=== PATIENT | female | born 1985 | race Caucasian/White ===

== ENCOUNTER 2021-04-21 12:08 | Emergency (ER) | payer BC, SELFPAY ==
[2021-04-21 13:20] VITALS: BP 123/76; PULSE 68; RESP 19; TEMP 36.9; O2SAT 98; BMI 19.3
[2021-04-21 13:48] LABS: UTC Influenza A Antigen Negative (Negative); UTC Influenza B Antigen Negative (Negative); UTC Strep Screen (Rapid) Negative (Negative)
--- NOTE | 2021-04-21 14:18 | HMH.EDUTC ---
[facility] [place] Clinical Impression: Viral syndrome Disposition: Home, Self-Care Condition on Discharge: Good Instructions: DI for Viral Syndrome, DI for COVID-19 (Suspected or Confirmed ) Additional Instructions: *Monitor Temp, Over the counter Motrin or Tylenol as directed/as needed Tylenol every 4 hours and Motrin every 6 hours (as long as your family doctor has told you that you can take it) for fever or pain. and straight to ER if unable to lower temp less than 101.0 after medication given *Warm salt water gargles may help to soothe the throat *Throat Lozenges *Warm fluids like tea with honey may help to soothe the throat *Sleep elevated *Humidifier/Vaporizer Follow up IMMEDIATELY for new or worsening symptoms or no Noticeable improvement over the next 48-72 hours. 911 for difficulty breathing or swallowing You were tested for today for COVID19 your test result should be back in the next 24-48 hours, you may check your results on the [facility] if you have trouble logging on you can call support or you will get a call if your results are Positive You was given a handout with instructions for Self Quarantine and Self isolation for while you wait on test results and what to do if they are positive If you are positive the Health Dept will be contacting you also Make sure to take your Vitamins Vit. C Vit D and Zinc if you can take them Prescriptions: Ondansetron [Zofran 4mg ODT] 4 mg PO TIDP PRN #10 tab PRN Reason: Nausea Transmission Status: Pending to [facility] Referrals: Kirk Parham MD [Primary Care Provider] - As needed Forms: Work/School Release Time of Disposition: 14:20 Medical Decision Making - Doe Inquiry Pt receiving controlled substance: No Doe was queried for this patient: No Vital Signs: 04/21/21 13:20 Temperature 98.4 F Temperature Source Oral Pulse Rate [Right Brachial] 68 Respiratory Rate 19 Blood Pressure [Right Arm] 123/76 Blood Pressure Mean [Right Arm] 91 Blood Pressure Source [Right Arm] Automatic Cuff Blood Pressure Position [Right Arm] Sitting 02 Sat by Pulse Oximetry 98 Oxygen Delivery Method Room Air - Lab Data Lab results reviewed: Yes: I reviewed the patient's lab results. Lab Results 04/21/21 13:19: Influenza Type A Ag Negative, Influenza Type B Ag Negative 04/21/21 13:19: Strep Scn Rapid Clinic Negative Orders (Tests/Meds): ORDERS Category Date Time Status Covid-19 Nasal PCR ([facility]) Routine Lab 04/21/21 13:10 Received Strep Screen Confirmation Stat Micro 04/21/21 13:19 Received Medical Decision Narrative: Patient state that she has taken zofran in the past without complications [facility] [place] - General Stated complaint: sore throat, cough, diarrhea, h/a, congestion Time Seen by Provider: 04/21/21 14:18 Mode of Arrival: Ambulatory Source of Information: Patient Limitations: No Limitations Description of Symptoms (Recalled from Triage Doc. by RN): PATIENT C/O BODY ACHES AND SORE THROAT SINCE YESTERDAY. SHE STATES SHE FEELS LIKE SHE HAS THE FLU HEENT Symptoms (Recalled from RN notes): Yes Resp Symptoms (Recalled from RN notes): No Skin Symptoms (Recalled from RN notes): No MS Symptoms (Recalled from RN notes): No Functional Status (Recalled from RN notes): WNL - History of Present Illness Provider Complaint: Patient state that she feels like she has the flu States that her neice recently tested positive for COVID and she was around her also her sister is having similar symptoms - Related Data Home Medications Medication Instructions Recorded Confirmed buprenorphine 8 mg-naloxone 2 mg 1.75 tab SUBLINGUAL DAILY tab 03/14/21 04/21/21 sublingual tablet Gabapentin 300 mg PO TID 04/21/21 04/21/21 Previous Rx's Medication Instructions Recorded Ondansetron [Zofran 4mg ODT] 4 mg PO TIDP PRN #10 tab 04/21/21 Allergies Allergy/AdvReac Type Severity Reaction Status Date / Time pentazocine [From T
[2021-04-21 14:22] VITALS: BP 123/76; PULSE 68; RESP 19; TEMP 36.9; O2SAT 98
== END 2021-04-21 14:32 | disposition home or self-care (01) ==
PROVIDERS: Emergency Provider Nurse Practitioner; PCP Emergency Medicine
DX: J02.9 Acute pharyngitis, unspecified (principal); B34.9 Viral infection, unspecified; M79.7 Fibromyalgia; Z88.0 Allergy status to penicillin; F17.210 Nicotine dependence, cigarettes, uncomplicated
CPT/HCPCS: 87804; 87880; 99203; C9803; G0463; U0003; U0005

== ENCOUNTER → 2021-05-13 16:02 | Outpatient (CLI) | payer BC, SELFPAY ==
[2021-05-13 17:10] LABS: Amphetamine/Metha Screen,Urine Negative ng/ml (<1000)
[2021-05-13 17:11] LABS: Barbiturates Screen,Urine Negative ng/ml (<200)
[2021-05-13 17:13] LABS: Benzodiazepines Screen,Urine Negative ng/ml (<200); Cannabinoid Screen,Urine Negative ng/ml (<50)
[2021-05-13 17:14] LABS: Cocaine Screen,Urine Negative ng/ml (<300)
[2021-05-13 17:15] LABS: Methadone Screen,Urine Negative ng/ml (<300); Opiate Screen,Urine Negative ng/ml (<300)
[2021-05-13 17:16] LABS: Phencyclidine Screen,Urine Negative ng/ml (<25)
== END ==
PROVIDERS: PCP Emergency Medicine; Visit Provider Emergency Medicine
DX: Z79.899 Other long term (current) drug therapy (principal)
CPT/HCPCS: 80305

== ENCOUNTER → 2021-10-25 12:21 | Outpatient (CLI) | payer BC, SELFPAY ==
[2021-10-25 13:31] LABS: Basophils # 0.1 K/mm3 (0-0.2); Basophils % 0.4 % (0.1-2.0); Eosinophils # 0.2 K/mm3 (0.0-0.4); Eosinophils % 1.6 % (0.1-12.0); Hematocrit 34.7 % (37.0-47.0); Hemoglobin 10.6 g/dL (12.2-16.2); Lymphocytes % 27.6 % (10-50); Mean Corpuscular HGB Conc 30.5 g/dL (31.8-35.4); Mean Corpuscular Hemoglobin 22.2 pg (27.0-31.2); Mean Corpuscular Volume 72.7 fl (81-99); Mean Platelet Volume 8.1 fl (7.4-10.4); Monocytes # 0.5 K/mm3 (0.1-1.0); Monocytes % 4.6 % (1.7-9.3); Neutrophils # 7.1 K/mm3 (1.8-7.8); Neutrophils % 65.8 % (37.0-80.0); Platelet Count 321 K/mm3 (142-424); Red Blood Count 4.77 M/mm3 (4.20-5.40); Red Cell Distribution Width 17.4 % (11.5-17.5); White Blood Count 10.8 K/mm3 (4.8-10.8)
[2021-10-25 13:53] LABS: Chloride 102 mmol/L (98-107)
[2021-10-25 13:54] LABS: Potassium 3.7 mmoL/L (3.5-5.1); Sodium 137 mmol/L (136-145)
[2021-10-25 13:56] LABS: Alanine Aminotransferase 63 U/L (12-78); Anion Gap 11.7 mEq/L (5-15); Aspartate Amino Transferase 74 U/L (14-36); Blood Urea Nitrogen 10 mg/dl (7-17); Carbon Dioxide 27 mmol/L (22.0-30.0); Estimated Glomerular Filt Rate 112 ml/min (>60); GFR (African American) 135 ML/MIN (>60)
[2021-10-25 13:57] LABS: Albumin Level 4.3 g/dl (3.5-5.0); Alkaline Phosphatase 94 U/L (38-126); Bilirubin,Direct 0.3 mg/dl (0.0-0.4); Bilirubin,Total 0.3 mg/dl (0.2-1.3); Calcium 9.2 mg/dl (8.4-10.2); Glucose 139 mg/dl (74-100); Total Protein,Serum 7.7 g/dl (6.3-8.2)
[2021-10-26 09:13] LABS: HIV Screen 4th Generation wRfx Non Reactive (Non Reactive)
[2021-10-28 23:14] LABS: Hep A Ab, IgM NEGATIVE; Hepatitis B Core Antibody IgM NEGATIVE; Hepatitis B Surface Antigen NEGATIVE; Hepatitis C Antibody <0.1
== END ==
PROVIDERS: PCP Emergency Medicine; Visit Provider Psychiatry & Neurology Psychiatry
DX: F11.20 Opioid dependence, uncomplicated (principal)
CPT/HCPCS: 36415; 80048; 80074; 80076; 85025; 86703; G0432

== ENCOUNTER → 2021-12-21 17:17 | Outpatient (CLI) | payer BC, SELFPAY ==
[2021-12-21 15:38] LABS: Basophils # 0.1 K/mm3 (0-0.2); Basophils % 0.5 % (0.1-2.0); Eosinophils # 0.2 K/mm3 (0.0-0.4); Eosinophils % 2.2 % (0.1-12.0); Hematocrit 35.9 % (37.0-47.0); Lymphocytes # 3.1 K/mm3 (0.7-4.5); Lymphocytes % 31.4 % (10-50); Mean Corpuscular HGB Conc 30.7 g/dL (31.8-35.4); Mean Corpuscular Hemoglobin 22.7 pg (27.0-31.2); Mean Corpuscular Volume 73.9 fl (81-99); Mean Platelet Volume 9.1 fl (7.4-10.4); Monocytes # 0.6 K/mm3 (0.1-1.0); Monocytes % 6.3 % (1.7-9.3); Neutrophils # 5.9 K/mm3 (1.8-7.8); Neutrophils % 59.6 % (37.0-80.0); Platelet Count 379 K/mm3 (142-424); Red Blood Count 4.85 M/mm3 (4.20-5.40); Red Cell Distribution Width 17.9 % (11.5-17.5); White Blood Count 9.9 K/mm3 (4.8-10.8)
[2021-12-21 15:58] LABS: Alanine Aminotransferase 33 U/L (12-78); Albumin/Globulin Ratio 1.1 (1.1-1.8); Alkaline Phosphatase 124 U/L (38-126); Anion Gap 11.2 mEq/L (5-15); Aspartate Amino Transferase 41 U/L (14-36); Blood Urea Nitrogen 6 mg/dl (7-17); Carbon Dioxide 27 mmol/L (22.0-30.0); Chloride 103 mmol/L (98-107); Chol/HDL Ratio 6.3 (1-3.5); Cholesterol 241 mg/dl (140-200); Estimated Glomerular Filt Rate 138 ml/min (>60); GFR (African American) 167 ML/MIN (>60); Globulin 3.5 g/dL (1.3-3.2); Glucose 90 mg/dl (74-100); HDL Cholesterol 38 mg/dl (40-60); Potassium 4.2 mmoL/L (3.5-5.1); Sodium 137 mmol/L (136-145); Total Protein,Serum 7.5 g/dl (6.3-8.2); Triglycerides 133 mg/dl (30-150); VLDL Cholesterol 27 mg/dL (0-40)
[2021-12-21 16:03] LABS: Bilirubin,Total < 0.1 mg/dl (0.2-1.3)
[2021-12-21 16:05] LABS: Total Iron Binding Capacity 460 ug/dL (265-497)
[2021-12-21 16:09] LABS: Direct LDL Cholesterol 188.74 mg/dL (100-129)
[2021-12-21 16:25] LABS: 25-OH Vitamin D, Total < 12.8 ng/mL (30-100)
[2021-12-21 16:28] LABS: Thyroid Stimulating Hormone 2.16 uIU/mL (0.465-4.68)
[2021-12-21 16:31] LABS: Ferritin 7.15 ng/ml (6.24-137)
[2021-12-21 16:33] LABS: Iron 24 ug/dL (37-170)
[2021-12-21 16:48] LABS: Vitamin B12 332 pg/mL (239-931)
== END ==
PROVIDERS: PCP Physician Assistant; Visit Provider Physician Assistant
DX: I10 Essential (primary) hypertension (principal); R53.83 Other fatigue; E55.9 Vitamin D deficiency, unspecified; D50.9 Iron deficiency anemia, unspecified
CPT/HCPCS: 80053; 80061; 82306; 82607; 82728; 83540; 83550; 84443; 85025

== ENCOUNTER → 2021-12-28 16:34 | Outpatient (CLI) | payer BC, SELFPAY ==
[2021-12-28 14:41] LABS: Anion Gap 18.4 mEq/L (5-15); Blood Urea Nitrogen 10 mg/dl (7-17); Calcium 8.8 mg/dl (8.4-10.2); Carbon Dioxide 23 mmol/L (22.0-30.0); Chloride 101 mmol/L (98-107); Estimated Glomerular Filt Rate 138 ml/min (>60); GFR (African American) 167 ML/MIN (>60); Glucose 104 mg/dl (74-100); Potassium 4.4 mmoL/L (3.5-5.1); Sodium 138 mmol/L (136-145)
== END ==
PROVIDERS: PCP Physician Assistant; Visit Provider Physician Assistant
DX: N18.9 Chronic kidney disease, unspecified (principal); I12.9 Hypertensive chronic kidney disease with stage 1 through stage 4 chronic kidney disease, or unspecified chronic kidney disease
CPT/HCPCS: 80048

== ENCOUNTER 2022-06-03 18:51 | Emergency (ER) | payer OTHER, BC, SELFPAY ==
[2022-06-03 18:54] VITALS: BP 131/75; PULSE 78; RESP 16; TEMP 36.7; O2SAT 98; BMI 36.3
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
[2022-06-03 20:10] VITALS: BP 130/72; PULSE 76; RESP 18; TEMP 36.6; O2SAT 99
== END 2022-06-03 20:12 | disposition home or self-care (01) ==
PROVIDERS: Emergency Provider Emergency Medicine; PCP Emergency Medicine
DX: S29.012A Strain of muscle and tendon of back wall of thorax, initial encounter (principal); R73.03 Prediabetes; D50.9 Iron deficiency anemia, unspecified; F17.210 Nicotine dependence, cigarettes, uncomplicated; V49.40XA Driver injured in collision with unspecified motor vehicles in traffic accident, initial encounter; Z98.51 Tubal ligation status
CPT/HCPCS: 99283; 99284

== ENCOUNTER 2022-06-20 11:40 | Emergency (ER) | payer OTHER, BC, SELFPAY ==
[2022-06-20 11:41] VITALS: BP 121/74; PULSE 69; RESP 17; TEMP 36.6; O2SAT 97; BMI 38.2
[2022-06-20 12:00] VITALS: BP 120/85; PULSE 69; O2SAT 96
--- NOTE | 2022-06-20 12:15 | PC.NURSE ---
RJ ADAMS at for pt leal
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
[2022-06-20 12:30] VITALS: BP 133/85; PULSE 60; O2SAT 95
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
[2022-06-20 13:00] VITALS: BP 106/70; PULSE 62; O2SAT 96
[2022-06-20 13:30] VITALS: BP 106/67; PULSE 57; O2SAT 96
--- NOTE | 2022-06-20 13:41 | PC.NURSE ---
Patient states she feels better and does not have a headache any longer. Attending notified
[2022-06-20 13:56] VITALS: BP 106/67; PULSE 76; RESP 17; TEMP 36.7; O2SAT 96
== END 2022-06-20 14:01 | disposition home or self-care (01) ==
PROVIDERS: Emergency Provider Emergency Medicine; PCP Emergency Medicine
DX: R51.9 Headache, unspecified (principal); M54.6 Pain in thoracic spine
CPT/HCPCS: 70450; 72125; 72128; 96361; 96374; 96375; 99284; 99285

== ENCOUNTER 2023-03-03 23:31 | Emergency (ER) | payer BC, SELFPAY ==
[2023-03-03 23:33] VITALS: BP 127/85; PULSE 82; RESP 18; TEMP 36.9; O2SAT 99; BMI 38.2
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
[2023-03-04 00:10] VITALS: BP 127/85; PULSE 82; RESP 18; TEMP 36.9; O2SAT 100
== END 2023-03-04 00:10 | disposition home or self-care (01) ==
PROVIDERS: Emergency Provider Emergency Medicine; PCP Emergency Medicine
DX: S61.212A Laceration without foreign body of right middle finger without damage to nail, initial encounter (principal); D50.9 Iron deficiency anemia, unspecified; F17.210 Nicotine dependence, cigarettes, uncomplicated; W26.8XXA Contact with other sharp object(s), not elsewhere classified, initial encounter; Z23 Encounter for immunization
CPT/HCPCS: 12001; 90715; 96372; 99283

== ENCOUNTER 2023-05-01 20:46 | Outpatient (CLI) | payer BC, SELFPAY ==
[2023-05-01 18:30] LABS: Basophils % 0.5 % (0.1-2.0); Eosinophils # 0.1 K/mm3 (0.0-0.4); Eosinophils % 1.8 % (0.1-12.0); Hematocrit 33.5 % (37.0-47.0); Hemoglobin 12.9 g/dL (12.2-16.2); Lymphocytes # 2.3 K/mm3 (0.7-4.5); Lymphocytes % 34.8 % (10-50); Mean Corpuscular HGB Conc 38.4 g/dL (31.8-35.4); Mean Corpuscular Hemoglobin 31.5 pg (27.0-31.2); Mean Corpuscular Volume 81.9 fl (81-99); Monocytes # 0.4 K/mm3 (0.1-1.0); Monocytes % 5.5 % (1.7-9.3); Neutrophils # 3.8 K/mm3 (1.8-7.8); Neutrophils % 57.4 % (37.0-80.0); Platelet Count 210 K/mm3 (142-424); Red Blood Count 4.08 M/mm3 (4.20-5.40); Red Cell Distribution Width 17.1 % (11.5-17.5); White Blood Count 6.7 K/mm3 (4.8-10.8)
[2023-05-01 18:34] LABS: Chol/HDL Ratio 5.7 (1-3.5); Cholesterol 199 mg/dl (140-200); HDL Cholesterol 35 mg/dl (40-60); Triglycerides 108 mg/dl (30-150); VLDL Cholesterol 22 mg/dL (0-40)
[2023-05-01 18:44] LABS: Direct LDL Cholesterol 138.24 mg/dL (100-129)
[2023-05-01 19:18] LABS: 25-OH Vitamin D, Total 19.8 ng/mL (30-100)
[2023-05-01 20:59] LABS: Hemoglobin A1C 5.7 % (4.0-6.0)
== END 2023-05-01 23:59 ==
LOC: LAB.DROPOF 20:47
PROVIDERS: PCP Internal Medicine; Visit Provider Internal Medicine
DX: D50.9 Iron deficiency anemia, unspecified (principal); E55.9 Vitamin D deficiency, unspecified; E78.5 Hyperlipidemia, unspecified; Z79.899 Other long term (current) drug therapy
CPT/HCPCS: 80061; 82306; 83036; 85025

== ENCOUNTER 2023-10-17 19:01 | Outpatient (CLI) | payer BC, SELFPAY ==
[2023-10-17 20:21] LABS: Microalbumin < 6.000 mg/L (0-16.7)
[2023-10-17 20:32] LABS: Alanine Aminotransferase 27 U/L (12-78); Albumin Level 3.7 g/dl (3.5-5.0); Albumin/Globulin Ratio 1.1 (1.1-1.8); Alkaline Phosphatase 122 U/L (38-126); Anion Gap 8.1 mEq/L (5-15); Aspartate Amino Transferase 30 U/L (14-36); Bilirubin,Total 0.2 mg/dl (0.2-1.3); Blood Urea Nitrogen 11 mg/dl (7-17); Calcium 9.3 mg/dl (8.4-10.2); Carbon Dioxide 28 mmol/L (22.0-30.0); Chloride 106 mmol/L (98-107); Chol/HDL Ratio 5.6 (1-3.5); Cholesterol 197 mg/dl (140-200); Estimated Glomerular Filt Rate 137 ml/min (>60); GFR (African American) 165 ML/MIN (>60); Globulin 3.3 g/dL (1.3-3.2); Glucose 103 mg/dl (74-100); HDL Cholesterol 35 mg/dl (40-60); Potassium 4.1 mmoL/L (3.5-5.1); Sodium 138 mmol/L (136-145); Triglycerides 91 mg/dl (30-150); VLDL Cholesterol 18 mg/dL (0-40)
[2023-10-17 20:43] LABS: Direct LDL Cholesterol 148.15 mg/dL (100-129)
[2023-10-17 21:01] LABS: Thyroid Stimulating Hormone 1.45 uIU/mL (0.465-4.68)
[2023-10-17 22:36] LABS: Hemoglobin A1C 5.6 % (4.0-6.0)
[2023-10-17 22:50] LABS: Vitamin B12 389 pg/mL (239-931)
== END 2023-10-17 23:59 | disposition home or self-care (01) ==
PROVIDERS: PCP Internal Medicine; Visit Provider Internal Medicine
DX: M79.2 Neuralgia and neuritis, unspecified (principal); Z79.899 Other long term (current) drug therapy; E66.9 Obesity, unspecified; Z68.38 Body mass index [BMI] 38.0-38.9, adult
CPT/HCPCS: 80053; 80061; 82043; 82607; 83036; 84443

== ENCOUNTER 2024-07-07 14:24 | Outpatient (CLI) | payer OTHER, SELFPAY ==
[2024-07-07 18:39] LABS: Creatinine,Urine Random 32 mg/dL (Not Estab.); Microalbumin < 6.000 mg/L (0-16.7)
[2024-07-07 19:09] LABS: Basophils % 0.4 % (0.1-2.0); Eosinophils # 0.2 K/mm3 (0.0-0.4); Eosinophils % 1.9 % (0.1-12.0); Hematocrit 34.9 % (37.0-47.0); Hemoglobin 10.6 g/dL (12.2-16.2); Lymphocytes # 2.4 K/mm3 (0.7-4.5); Lymphocytes % 31.4 % (10-50); Mean Corpuscular HGB Conc 30.4 g/dL (31.8-35.4); Mean Corpuscular Hemoglobin 23.3 pg (27.0-31.2); Mean Corpuscular Volume 76.9 fl (81-99); Mean Platelet Volume 10.5 fl (7.4-10.4); Monocytes # 0.5 K/mm3 (0.1-1.0); Monocytes % 6.2 % (1.7-9.3); Neutrophils # 4.6 K/mm3 (1.8-7.8); Neutrophils % 60.1 % (37.0-80.0); Platelet Count 348 K/mm3 (142-424); Red Blood Count 4.54 M/mm3 (4.20-5.40); Red Cell Distribution Width 17.2 % (11.5-17.5); White Blood Count 7.7 K/mm3 (4.8-10.8)
[2024-07-07 19:44] LABS: Hemoglobin A1C 5.8 % (4.0-6.0)
[2024-07-07 21:01] LABS: Alanine Aminotransferase 17 U/L (12-78); Albumin Level 3.8 g/dl (3.5-5.0); Albumin/Globulin Ratio 1.1 (1.1-1.8); Alkaline Phosphatase 90 U/L (38-126); Anion Gap 13.4 mEq/L (5-15); Aspartate Amino Transferase 21 U/L (14-36); Bilirubin,Total 0.3 mg/dl (0.2-1.3); Blood Urea Nitrogen 10 mg/dl (7-17); Calcium 9.5 mg/dl (8.4-10.2); Carbon Dioxide 27 mmol/L (22.0-30.0); Chloride 103 mmol/L (98-107); Chol/HDL Ratio 6.8 (1-3.5); Cholesterol 218 mg/dl (140-200); Estimated Glomerular Filt Rate 92 ml/min (>60); GFR (African American) 112 ML/MIN (>60); Globulin 3.4 g/dL (1.3-3.2); Glucose 70 mg/dl (74-100); HDL Cholesterol 32 mg/dl (40-60); Potassium 4.4 mmoL/L (3.5-5.1); Sodium 139 mmol/L (136-145); Total Protein,Serum 7.2 g/dl (6.3-8.2); Triglycerides 130 mg/dl (30-150); VLDL Cholesterol 26 mg/dL (0-40)
[2024-07-07 21:13] LABS: Direct LDL Cholesterol 149.48 mg/dL (100-129)
[2024-07-07 21:30] LABS: 25-OH Vitamin D, Total 25.9 ng/mL (30-100)
[2024-07-07 21:46] LABS: Thyroid Stimulating Hormone 2.06 uIU/mL (0.465-4.68)
[2024-07-07 22:05] LABS: Vitamin B12 615 pg/mL (239-931)
== END 2024-07-07 23:59 | disposition home or self-care (01) ==
LOC: LAB.DROPOF 07-08 13:32
PROVIDERS: PCP Family Medicine; Visit Provider Family Medicine
DX: E55.9 Vitamin D deficiency, unspecified (principal); D51.9 Vitamin B12 deficiency anemia, unspecified; E78.2 Mixed hyperlipidemia; I10 Essential (primary) hypertension; F11.20 Opioid dependence, uncomplicated
CPT/HCPCS: 80053; 80061; 82043; 82306; 82570; 82607; 83036; 84443; 85025

== ENCOUNTER 2024-10-02 10:57 | Outpatient (CLI) | payer OTHER, SELFPAY ==
[2024-10-02 18:26] LABS: Basophils % 0.2 % (0.1-2.0); Eosinophils # 0.2 Kmm3 (0.0-0.4); Eosinophils % 2.6 % (0.1-12.0); Hematocrit 32.8 % (37.0-47.0); Hemoglobin 9.3 g/dL (12.2-16.2); Immature Granulocytes # 0.03 10^3uL; Immature Granulocytes % 0.3 %; Lymphocytes # 2.2 K/mm3 (0.7-4.5); Lymphocytes % 25.8 % (10-50); Mean Corpuscular HGB Conc 28.4 g/dL (31.8-35.4); Mean Corpuscular Hemoglobin 21.2 pg (27.0-31.2); Mean Corpuscular Volume 74.7 fl (81-99); Mean Platelet Volume 11.2 fl (7.4-10.4); Monocytes # 0.7 K/mm3 (0.1-1.0); Monocytes % 7.7 % (1.7-9.3); Neutrophils # 5.5 K/mm3 (1.8-7.8); Neutrophils % 63.4 % (37.0-80.0); Nucleated Red Blood Cells # 0 10^3/uL; Nucleated Red Blood Cells % 0 %; Platelet Count 292 K/mm3 (142-424); Red Blood Count 4.39 M/mm3 (4.20-5.40); Red Cell Distribution Width 19.2 % (11.5-17.5); Red Cell Distribution Width-SD 51.6 fL; White Blood Count 8.6 K/mm3 (4.8-10.8)
[2024-10-02 19:14] LABS: Alanine Aminotransferase 21 U/L (12-78); Albumin Level 4.2 g/dl (3.5-5.0); Albumin/Globulin Ratio 1.3 (1.1-1.8); Alkaline Phosphatase 108 U/L (38-126); Anion Gap 13.2 mEq/L (5-15); Aspartate Amino Transferase 25 U/L (14-36); Bilirubin,Direct 0.3 mg/dl (0.0-0.4); Bilirubin,Indirect 0.1 mg/dL (0.0-0.9); Bilirubin,Total 0.4 mg/dl (0.2-1.3); Bilirubin,Unconjugated 0.2 mg/dL (0.0-1.1); Blood Urea Nitrogen 6 mg/dl (7-17); Calcium 9.5 mg/dl (8.4-10.2); Carbon Dioxide 31 mmol/L (22.0-30.0); Chloride 97 mmol/L (98-107); Chol/HDL Ratio 4.6 (1-3.5); Cholesterol 156 mg/dl (140-200); Estimated Glomerular Filt Rate 110 ml/min (>60); GFR (African American) 133 ML/MIN (>60); Globulin 3.3 g/dL (1.3-3.2); Glucose 115 mg/dl (74-100); HDL Cholesterol 34 mg/dl (40-60); Potassium 3.2 mmoL/L (3.5-5.1); Sodium 138 mmol/L (136-145); Total Protein,Serum 7.5 g/dl (6.3-8.2); Triglycerides 96 mg/dl (30-150); VLDL Cholesterol 19 mg/dL (0-40)
[2024-10-02 19:56] LABS: HIV Combo NEGATIVE (Negative)
[2024-10-02 20:03] LABS: Hepatitis C Ab Qual. W/ RFX NEGATIVE (Negative)
[2024-10-02 20:04] LABS: Vitamin B12 744 pg/mL (239-931)
[2024-10-04 05:14] LABS: Hepatitis B Surface Antigen Negative (Negative)
== END 2024-10-02 23:59 | disposition home or self-care (01) ==
LOC: LAB.DROPOF 10-03 10:13
PROVIDERS: PCP Family Medicine; Visit Provider Family Medicine
DX: D51.9 Vitamin B12 deficiency anemia, unspecified (principal); I10 Essential (primary) hypertension; Z11.59 Encounter for screening for other viral diseases
CPT/HCPCS: 80053; 80061; 82248; 82607; 85025; 86803; 87340; 87389

== ENCOUNTER 2024-12-24 13:57 | Outpatient (CLI) | payer OTHER, SELFPAY ==
[2024-12-24 19:35] LABS: Hematocrit 33.7 % (37.0-47.0); Hemoglobin 9.7 g/dL (12.2-16.2); Immature Granulocytes % 0.3 %; Mean Corpuscular HGB Conc 28.8 g/dL (31.8-35.4); Mean Corpuscular Hemoglobin 20.8 pg (27.0-31.2); Mean Corpuscular Volume 72.3 fl (81-99); Nucleated Red Blood Cells % 0 %; Platelet Count 325 K/mm3 (142-424); Red Blood Count 4.66 M/mm3 (4.20-5.40); Red Cell Distribution Width-SD 49.8 fL; White Blood Count 8.7 K/mm3 (4.8-10.8)
[2024-12-24 19:56] LABS: Alanine Aminotransferase 24 U/L (12-78); Albumin Level 3.9 g/dl (3.5-5.0); Albumin/Globulin Ratio 1.2 (1.1-1.8); Alkaline Phosphatase 105 U/L (38-126); Anion Gap 10.9 mEq/L (5-15); Aspartate Amino Transferase 29 U/L (14-36); Bilirubin,Total 0.4 mg/dl (0.2-1.3); Blood Urea Nitrogen 5 mg/dl (7-17); Calcium 8.9 mg/dl (8.4-10.2); Carbon Dioxide 28 mmol/L (22.0-30.0); Chloride 100 mmol/L (98-107); Creatinine,Serum 0.50 mg/dl (0.52-1.04); Estimated Glomerular Filt Rate 136 ml/min (>60); GFR (African American) 165 ML/MIN (>60); Globulin 3.3 g/dL (1.3-3.2); Glucose 108 mg/dl (74-100); Potassium 3.9 mmoL/L (3.5-5.1); Sodium 135 mmol/L (136-145); Total Protein,Serum 7.2 g/dl (6.3-8.2)
[2024-12-24 21:02] LABS: Hemoglobin A1C 5.6 % (4.0-6.0)
--- OUTSIDE RECORDS SUMMARY | 2024-12-25 11:01 | XMS_ITS | Clinical Summary ---
Author Organization [facility] Address [address] [place] [id number] Care Team Providers Care Nursing Admin Name Role Phone None Primary Care Provider Unavailabl e Social History Tobacco Use Types Packs/Day Years Used Date Smoking Tobacco: Never Assessed Comments Unknown Sex and Gender Information Value Date Recorded Sex Assigned at Not on file Legal Sex Female 4:20 PM EST Gender Identity Not on file Sexual Orientation Not on file Plan of Treatment Health Maintenance Due Date Last Done Comments Breast Cancer Screening 1983 Hepatitis B (HepB) Vaccine ( 1 of 3 - 19+ 3-dose series) 2002 Tdap/Td Vaccine >11 yo (1 - Tdap) 2002 Cervical Cancer Screening 2004 HPV Vaccine (1 - 3-dose SCDM series) 2010 Colon Cancer Risk Assessment 2023 Annual SDOH Screening 04/09/2024 Influenza Vaccine (#1) 2024 Haemophilus Influenzae Type B (Hib) Vaccine Aged Out No longer eligible b ased on patient's age to complete this topic Hepatitis A (HepA) Vaccine Aged Out N o longer eligible based on patient's age to complete this topic Meningococcal ACWY Aged Out No longer eligible based on patient's age to complete this topic Pneumococcal Vaccines 6-49 yo Risk Aged Out No longer eligible based on patient's age to complete this topic Polio (IPV) Aged Out No longer eligi ble based on patient's age to complete this topic Rotavirus (RV) Vaccine Aged Out No lo nger eligible based on patient's age to complete this topic Care Teams Nursing Admin Relationship Specialty Start Date End Date None PCP - General 06/13/05
[2024-12-25 14:01] LABS: Iron 34 ug/dL (37-170)
[2024-12-25 14:11] LABS: Total Iron Binding Capacity 468 ug/dL (265-497)
[2024-12-25 14:37] LABS: Ferritin 8.47 ng/ml (6.24-137)
== END 2024-12-24 23:59 ==
LOC: LAB.DROPOF 12-25 10:59
PROVIDERS: PCP Family Medicine; Visit Provider Family Medicine
DX: D64.9 Anemia, unspecified (principal); E78.5 Hyperlipidemia, unspecified; R73.03 Prediabetes
CPT/HCPCS: 80053; 82728; 83036; 83540; 83550; 85025

== ENCOUNTER 2025-03-25 13:50 | Outpatient (CLI) | payer MEDICAID, SELFPAY ==
[2025-03-25 20:44] LABS: Hematocrit 34.2 % (37.0-47.0); Hemoglobin 9.7 g/dL (12.2-16.2); Immature Granulocytes % 0.1 %; Mean Corpuscular HGB Conc 28.4 g/dL (31.8-35.4); Mean Corpuscular Hemoglobin 20.8 pg (27.0-31.2); Mean Corpuscular Volume 73.4 fl (81-99); Nucleated Red Blood Cells % 0 %; Platelet Count 302 K/mm3 (142-424); Red Blood Count 4.66 M/mm3 (4.20-5.40); Red Cell Distribution Width-SD 49.7 fL; White Blood Count 7.4 K/mm3 (4.8-10.8)
[2025-03-25 21:05] LABS: Alanine Aminotransferase 22 U/L (12-78); Albumin Level 4.4 g/dl (3.5-5.0); Albumin/Globulin Ratio 1.2 (1.1-1.8); Alkaline Phosphatase 113 U/L (38-126); Anion Gap 11.5 mEq/L (5-15); Aspartate Amino Transferase 31 U/L (14-36); Bilirubin,Total 0.4 mg/dl (0.2-1.3); Blood Urea Nitrogen 9 mg/dl (7-17); Carbon Dioxide 28 mmol/L (22.0-30.0); Chloride 102 mmol/L (98-107); Creatinine,Serum 0.70 mg/dl (0.52-1.04); Estimated Glomerular Filt Rate 92 ml/min (>60); GFR (African American) 112 ML/MIN (>60); Globulin 3.7 g/dL (1.3-3.2); Iron 33 ug/dL (37-170); Potassium 4.5 mmoL/L (3.5-5.1); Sodium 137 mmol/L (136-145); Total Protein,Serum 8.1 g/dl (6.3-8.2)
[2025-03-25 21:14] LABS: Total Iron Binding Capacity 431 ug/dL (265-497)
[2025-03-25 21:18] LABS: Calcium 9.1 mg/dl (8.4-10.2); Glucose 87 mg/dl (74-100)
[2025-03-25 21:21] LABS: 25-OH Vitamin D, Total 19.4 ng/mL (30-100)
[2025-03-25 21:28] LABS: Hemoglobin A1C 5.7 % (4.0-6.0)
[2025-03-25 21:56] LABS: Vitamin B12 655 pg/mL (239-931)
[2025-03-25 21:57] LABS: Ferritin 8.45 ng/ml (6.24-137)
--- OUTSIDE RECORDS SUMMARY | 2025-03-26 10:50 | XMS_ITS | Clinical Summary ---
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
== END 2025-03-25 23:59 | disposition home or self-care (01) ==
LOC: LAB.DROPOF 03-26 10:19
PROVIDERS: PCP Student in an Organized Health Care Education/Training Program; Visit Provider Family Medicine
DX: D50.9 Iron deficiency anemia, unspecified (principal); D51.9 Vitamin B12 deficiency anemia, unspecified; E55.9 Vitamin D deficiency, unspecified; R73.03 Prediabetes
CPT/HCPCS: 80053; 82306; 82607; 82728; 83036; 83540; 83550; 85025